=== PATIENT | male | born 1970 | race Caucasian/White ===

== ENCOUNTER 2023-08-27 14:35 | Emergency (ER) | payer OTHER ==
[~2023-08-27] VITALS: Ht 177.8 cm; Wt 114.3 kg
[2023-08-27 16:36] VITALS: BP 152/104; PULSE 80; RESP 20; TEMP 98.3; O2SAT 97
[2023-08-27] MEDS ORDERED: cefTRIAXone 1,000 MG in LIDOCAINE MPF 1% 2.1 ML IM ONE (17:20)
[2023-08-27] MEDS ORDERED: IBUP-2213 PO (17:40)
[2023-08-27] MEDS ORDERED: AMOX1TAB8 PO (17:40)
[2023-08-27] MEDS ORDERED: ACET-503 PO (17:40)
[2023-08-27] MEDS ORDERED: LIDOCAINE MPF 1% 5 ML ONE (17:49)
[2023-08-27] MEDS ORDERED: cefTRIAXone 1,000 MG VIAL ONE (17:49)
[2023-08-27 17:58] VITALS: BP 149/75; PULSE 80; RESP 20; TEMP 98.3; O2SAT 97
== END 2023-08-27 17:59 | disposition home or self-care (01) ==
LOC: MED 14:35
DX: K04.7 Periapical abscess without sinus (principal); R03.0 Elevated blood-pressure reading, without diagnosis of hypertension; Z79.899 Other long term (current) drug therapy
CPT/HCPCS: 96372; 99283; J0696; J2001